=== PATIENT | female | born 1970 | race Caucasian/White ===

== ENCOUNTER 2025-03-15 00:59 | Emergency (ER) | payer OTHER ==
[~2025-03-15] VITALS: Ht 165.1 cm; Wt 35.0 kg
[2025-03-15 01:13] VITALS: O2SAT 100
[2025-03-15] MEDS: ACETAMINOPHEN 325MG TABLET PO ONE (01:47)
[2025-03-15] MEDS ORDERED: IBUP-2029 MT (05:11)
[2025-03-15] MEDS: DEXAMETHASONE 4MG/ML 1ML VIAL IM ONE (05:29)
[2025-03-15 05:43] VITALS: BP 128/64; PULSE 90; RESP 20; TEMP 37.1; O2SAT 100
[2025-03-15 05:59] LABS: INFLUENZA TYPE A Presumptive Negative (Pres. Neg.)
[2025-03-15 06:00] LABS: INFLUENZA TYPE B Presumptive Negative (Pres. Neg.)
== END 2025-03-15 05:47 | disposition home or self-care (01) ==
LOC: ER 00:59
DX: U07.1 COVID-19 (principal); J02.8 Acute pharyngitis due to other specified organisms; B97.89 Other viral agents as the cause of diseases classified elsewhere; Z79.52 Long term (current) use of systemic steroids
CPT/HCPCS: 87430; 87804 ×2; 96372; 99283; 87426; J1100; Z7610